=== PATIENT | male | born 1985 | race African-American/Black ===

== ENCOUNTER 2016-08-08 13:58 | Emergency (ER) | payer SELFPAY ==
[~2016-08-08] VITALS: Ht 177.8 cm; Wt 101.7 kg
[~2016-08-08 13:58] MED LIST: KEFLEX500 MG PO
[2016-08-08 14:58] LABS: HEMATOCRIT 51.7 % (38.0-50.0); MCH 27.4 PG (29.0-34.0); MCHC 33.3 G/DL (30.0-36.0); MCV 82.5 FL (86-99); MEAN PLAT.VOLUME 9.1 uM^3 (9.0-12.4); PLATELET COUNT 338 K/uL (156-360); RBC DIS.WIDTH-CV 13.4 % (11.8-14.6); RED BLOOD COUNT 6.27 M/uL (4.00-5.50); WHITE BLOOD COUNT 16.8 K/uL (4.1-10.2)
[2016-08-08 15:11] LABS: CHLORIDE 99 mEq/L (99-109); POTASSIUM 3.5 mEq/L (3.7-5.4); SODIUM 140 mEq/L (136-147)
[2016-08-08 15:14] LABS: GLUCOSE 118 mg/dL (70-99)
[2016-08-08 15:15] LABS: ANION GAP 13 MEQ/L (2-14); TOTAL BILIRUBIN 1.3 mg/dL (0.0-1.0)
[2016-08-08 15:17] LABS: ALKALINE PHOSPHATASE 121 IU/L (3-129); GFR ESTIMATE (CALCULATED) > 59 mL/min/
[2016-08-08 15:18] LABS: UREA NITROGEN (BUN) 11 mg/dL (9-23)
[2016-08-08 15:21] LABS: LIPASE 5 U/L (1.0-51.0)
[2016-08-08 17:14] LABS: ADD MIUA? YES; BILIRUBIN MODERATE; BLOOD NEGATIVE; COLOR AMBER ((YELLOW)); GLUCOSE (STRIP) NEGATIVE; KETONES 20; LEUKOCYTES MODERATE; NITRITE NEGATIVE; PROTEIN (STRIP) >=500; SPECIFIC GRAVITY 1.033 (1.000-1.030)
[2016-08-08 17:29] LABS: BACTERIA 1+ /HPF; CALCIUM OXALATE CRYSTALS 2+ /HPF; EPITHELIAL CELLS 1+ /HPF; MUCUS 2+ /LPF; RED BLOOD CELLS 15-20 /HPF (0-5); UCUL ADDED? NO; WHITE BLOOD CELLS 40-50 /HPF (0-5)
[2016-08-08 17:46] LABS: ICTOTEST NEGATIVE
[2016-08-08] MEDS ORDERED: ZANTAC150 MG PO (19:20)
[2016-08-08] MEDS ORDERED: OMEPRAZOLE20 MG PO (19:20)
[2016-08-08] MEDS ORDERED: KEFLEX500 MG PO (19:20)
[2016-08-08 19:41] VITALS: BP 124/59
== END 2016-08-08 19:42 | disposition home or self-care (01) ==
LOC: EME 13:58
DX: K29.70 Gastritis, unspecified, without bleeding (principal); N39.0 Urinary tract infection, site not specified; D72.829 Elevated white blood cell count, unspecified; F17.200 Nicotine dependence, unspecified, uncomplicated
CPT/HCPCS: 74177; 80053; 81003; 83690; 85027; 87086; 99281; 99285; C9113; J0500; J1885; J2405; J7030

== ENCOUNTER 2017-07-02 22:54 | Emergency (ER) | payer SELFPAY ==
[~2017-07-02] VITALS: Ht 177.8 cm; Wt 109.9 kg
[~2017-07-02 22:54] MED LIST changes: +OMEPRAZOLE20 MG PO; +PERCOCET 5/31 TABLET PO; +ZANTAC150 MG PO
[2017-07-03 00:17] VITALS: BP 130/84
== END 2017-07-03 00:20 | disposition home or self-care (01) ==
LOC: EME 22:54
PROC: 0RSJXZZ Reposition Right Shoulder Joint, External Approach (ICD-10-PCS; principal; 2017-07-03)
DX: S43.004A Unspecified dislocation of right shoulder joint, initial encounter (principal); Y93.83 Activity, rough housing and horseplay
CPT/HCPCS: 73030; 99281; 99284; J3010; S0020